=== PATIENT | female | born 1945 | race Two or more races ===

== ENCOUNTER → 2018-04-07 | Outpatient (CLI) | payer OTHER | END | disposition home or self-care (01) | LOC: NUCLEAR 07:00 | DX: I20.8 Other forms of angina pectoris (principal); R07.2 Precordial pain; I10 Essential (primary) hypertension | CPT/HCPCS: 78452; 93017; A9500 ==

== ENCOUNTER 2023-04-26 17:15 | Emergency (ER) | payer OTHER ==
[~2023-04-26] VITALS: Ht 142.2 cm; Wt 56.7 kg
[2023-04-26] MEDS ORDERED: CALTRATE 600 +1 EAC1 PO (18:09)
[2023-04-26] MEDS ORDERED: KEPPRA100 MG/1 M (18:10)
[2023-04-26] MEDS ORDERED: CHILDREN'S ASPI81 MG (18:10)
[2023-04-26] MEDS ORDERED: CENTRUM ADULT120 MCG PO (18:10)
[2023-04-26] MEDS ORDERED: MEMANTINE H2 MG/1 ML PO (18:10)
[2023-04-26] MEDS ORDERED: ENALAPRIL M1 MG/1 ML PO (18:10)
[2023-04-26] MEDS ORDERED: LEXAPRO5 MG PO (18:10)
[2023-04-26] MEDS ORDERED: SINVASTATIN (18:10)
[2023-04-26] MEDS ORDERED: PROAIR RESPICL90 MCG (18:11)
[2023-04-26] MEDS ORDERED: [UNRECOGNIZED DRUG - OTHER] (18:11)
== END 2023-04-26 20:22 | disposition home or self-care (01) ==
LOC: ER 17:15
DX: J06.9 Acute upper respiratory infection, unspecified (principal)

== ENCOUNTER 2025-06-23 14:49 | Emergency (ER) | payer OTHER ==
[~2025-06-23] VITALS: Ht 142.2 cm; Wt 34.5 kg
[~2025-06-23 14:49] MED LIST: CALTRATE 600 +1 EAC1 PO; CENTRUM ADULT120 MCG PO; CHILDREN'S ASPI81 MG; ENALAPRIL M1 MG/1 ML PO; KEPPRA100 MG/1 M; LEXAPRO5 MG PO; MEMANTINE H2 MG/1 ML PO; PROAIR RESPICL90 MCG; SINVASTATIN; [UNRECOGNIZED DRUG - OTHER]
[2025-06-23] MEDS ORDERED: 0.9 % SODIUM CHLORIDE 500 ML IV ONE (17:00)
[2025-06-23 19:09] LABS: BASO % 0.2 % (0.1-1.2); EOS # 0.04 (0.04-0.54); EOS % 0.4 % (0.7-7.0); LYMPH # 1.87 (1.18-3.74); LYMPH % 17.6 % (19.3-53.1); MEAN PLATELET VOLUME 10.80 fl (9.4-12.4); MONO # 0.70 (0.24-0.82); MONO % 6.6 % (4.7-12.5); NEUT # 7.97 (1.56-6.13); NEUT % 75.0 % (34.0-71.1); RED CELL DISTRIBUTION WIDTH 13.6 % (11.6-14.4)
[2025-06-23 19:33] LABS: INR 1.14
[2025-06-23 19:38] LABS: ALT/SGPT 25.0 U/L (12-78); AST/SGOT 11.0 U/L (15-37); BILIRUBIN TOTAL 0.81 mg/dL (0.3-1.2); BUN CREA RATIO 34.0 (7.0-25.0); CREATININE SERUM 0.79 mg/dL (0.55-1.02); GFR 70.2; GLOBULINA 3.4 G/DL (2.4-3.5); GLUCOSE FASTING 93.0 mg/dL (65-100); OSMOLALITY SERUM 295.0 MOSM/KG (275-295)
[2025-06-23 19:46] LABS: COVID-19 AG NEGATIVE (NEGATIVE)
[2025-06-23] MEDS ORDERED: DIPHENHYDRAMINE HCL 50 MG/ML VIAL 1ML IV ONE (20:45)
[2025-06-23] MEDS ORDERED: DIPHENHYDRAMINE HCL 50 MG/ML VIAL 1ML ONE ×2 (22:16→22:36)
[2025-06-23] MEDS ORDERED: DIPHENHYDRAMINE HCL 50 MG/ML VIAL 1ML IM ONE (22:30)
== END 2025-06-24 10:38 | disposition designated cancer center or children's hospital (05) ==
LOC: ER 14:50
PROVIDERS: General Practice
DX: J98.2 Interstitial emphysema (principal); R04.2 Hemoptysis; R05.9 Cough, unspecified; Z20.822 Contact with and (suspected) exposure to COVID-19; I10 Essential (primary) hypertension